=== PATIENT | female | born 1955 | race African-American/Black ===

== ENCOUNTER 2020-10-29 12:10 | Inpatient (IN) | payer OTHER ==
[2020-10-29] VITALS (18 sets, daily range): BP systolic 74–146; BP diastolic 44–95
[~2020-10-29] VITALS: Ht 160 cm; Wt 66.2 kg
[2020-10-29] MEDS ORDERED: PREDNISONE 10 M10 MG PO (12:31)
[2020-10-29 13:12] LABS: ABSOLUTE NEUTROPHILS 9.7 thou/uL (1.4-8.2); BASOPHILS 0.4 % (0.0-2.0); HEMATOCRIT 46.1 % (37.0-47.0); HEMOGLOBIN 14.8 gm/dL (12.0-15.0); LYMPHOCYTES 5.8 % (24.0-44.0); MCV 81.4 fL (80.0-100.0); MONOCYTES 5.4 % (1.0-8.0); POLYS 88.4 % (36.0-66.0); RBC 5.67 mil/uL (4.20-5.00); RDW 16.8 % (10.5-14.5)
[2020-10-29 13:25] LABS: ANION GAP 20 mmol/L (7-16); BUN 61 mg/dL (7-18); CALCIUM 9.7 mg/dL (8.5-10.1); CHLORIDE 92 mmol/L (98-107); CO2 18 mmol/L (21-32); CREATININE 2.8 mg/dL (0.6-1.0); POTASSIUM 4.4 mmol/L (3.5-5.1)
[2020-10-29 13:32] LABS: ALBUMIN 3.7 g/dL (3.4-5.0); DIRECT BILIRUBIN 0.1 mg/dL (<0.1-0.2); SGOT 22 U/L (15-37); SGPT 19 U/L (14-59); SODIUM 130 mmol/L (136-145); TOTAL BILIRUBIN 0.8 mg/dL (0.2-1.0); TROPONIN-I <0.06 ng/mL (<0.06)
[2020-10-29 13:55] LABS: GLUCOSE 1240 mg/dL (74-106); PLATELET COUNT 266 thou/uL (150-400)
[2020-10-29 14:30] LABS: BE(vivo) -7.4 mmol/L (-2 to +3); HCO3 13.2 mmol/L (22.0-26.0); PCO2 18.2 mmHg (35.0-45.0); PO2 56.4 mmHg (80.0-100.0); sO2 92.2 % (92.0-98.0)
[2020-10-29 14:55] LABS: PHOSPHORUS 4.9 mg/dL (2.5-4.9)
[2020-10-29 14:58] LABS: CHOLESTEROL 335 mg/dL (<200); HDL CHOLESTEROL 63 mg/dL (>40); TC:HDL 5.3 Ratio (Not establshd); TRIGLYCERIDE 407 mg/dL (<150); VLDL 81 mg/dL (<40)
--- NOTE | 2020-10-29 16:06 | NUR ---
A #4F POWER INJECTABLE MIDLINE WAS PLACED PER HOSPITAL POLICY AFTER ATTEMPTING A 2ND PIV AND LAB WORK WAS UNSUCCESSFUL. THE RIGHT UPPER ARM BRACHIAL VEIN WAS WIDLEY PATENT. A MIDLINE WAS TRIMMED TO 10CM AND ADVANCED WITHOUT DIFFICULTY. LINE SECURED AND RELEASED FOR USE
[2020-10-29 16:50] LABS: URINE BILIRUBIN NEGATIVE (Negative); URINE BLOOD TRACE (Negative); URINE CLARITY CLEAR; URINE COLOR YELLOW; URINE GLUCOSE-RANDOM* 3+ (Negative); URINE KETONES 1+ (Negative); URINE LEUKOCYTES-REFLEX 1+ (Negative); URINE NITRITE-REFLEX NEGATIVE (Negative); URINE PROTEIN (DIPSTICK) NEGATIVE (Negative); URINE SPECIFIC GRAVITY 1.015 (1.005-1.035); URINE UROBILINOGEN 0.2 E.U./dl (0.2-1.0)
--- NOTE | 2020-10-29 16:50 | NUR ---
PT ORIENTED TO ROON AND UNIT, BED LOW AND LOCKED, SIDE RAILS UPX3, CALL LIGHT IN REACH, TELE APPLIED. PT HAS INSULING GTT AND WELL IVF. INTITIATE DKA PROTOCOL. EDUCATION GIVEN TO AT BEDSIDE.
[2020-10-29 16:51] LABS: CALCIUM 8.3 mg/dL (8.5-10.1); CREATININE 2.6 mg/dL (0.6-1.0); MAGNESIUM 2.5 mg/dL (1.8-2.4)
[2020-10-29 17:11] LABS: POTASSIUM 3.3 mmol/L (3.5-5.1)
[2020-10-29 17:12] LABS: CASTS None Seen /LPF (None Seen); MUCUS 4-6 Moderate strn/LPF (None Seen)
[2020-10-29 17:13] LABS: SQUAMOUS >10 Many /LPF (0-3)
[2020-10-29 17:15] LABS: CRYSTALS None Seen /LPF (None Seen); URINE RBC 0-2 Rare /HPF (0-2); URINE WBC-REFLEX 6-15 Few /HPF (0-5)
--- NOTE | 2020-10-29 19:31 | NUR ---
Gave Preeti Viktor (son) update on his mother's condition and status. son will call back later.
[2020-10-29 21:49] LABS: ALBUMIN 3.2 g/dL (3.4-5.0); CALCIUM 8.2 mg/dL (8.5-10.1); MAGNESIUM 2.2 mg/dL (1.8-2.4); PHOSPHORUS 0.9 mg/dL (2.6-4.7); POTASSIUM 3.7 mmol/L (3.5-5.1)
[2020-10-30] VITALS (39 sets, daily range): BP systolic 85–156; BP diastolic 44–80
--- NOTE | 2020-10-30 02:05 | NUR ---
Pt's sugar consistenly under 200 since 2100 at the beginning of the shift. Rosenda Bell JOINT CUTTER at bedside review blood glucose trend and recent labs. she wants to shut off insulin drip and hold off long acting insulin prior to shutting off drip. JOINT CUTTER wants to start low dose lispro ACHS sliding scale and sugar checks. Hourly bs checks for next two hours then continue to ACHS
[2020-10-30 02:15] LABS: ALBUMIN 2.9 g/dL (3.4-5.0); CALCIUM 8.1 mg/dL (8.5-10.1); CREATININE 1.7 mg/dL (0.6-1.0); MAGNESIUM 2.1 mg/dL (1.8-2.4); PHOSPHORUS 1.1 mg/dL (2.6-4.7); POTASSIUM 3.8 mmol/L (3.5-5.1)
[2020-10-30 06:02] LABS: CALCIUM 8.1 mg/dL (8.5-10.1); CREATININE 1.6 mg/dL (0.6-1.0)
[2020-10-30 06:06] LABS: ALBUMIN 2.7 g/dL (3.4-5.0); PHOSPHORUS 1.6 mg/dL (2.5-4.9)
--- NOTE | 2020-10-30 07:20 | EKG ---
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 : 1955 Requested By: Yasmeen Noble Order Number: [id number] MD: Pierre Valverde Measurements Intervals [place] Rate: 118 P: 70 NV: 117 QRS: -22 QRSD: 81 T: -88 QT: 407 QTc: 571 Interpretive Statements Sinus tachycardia Right atrial enlargement Abnormal R-wave progression, early transition Q lead III Prolonged QT interval No previous ECG available for comparison Electronically Signed On 10-30-2020 7:19:53 CDT by Pierre Valverde [email or web address] <ELECTRONICALLY SIGNED> By: Pierre Valverde MD, [facility] 10/30/20 0719 [id number] Pierre Valverde MD, FACC /EPI
--- NOTE | 2020-10-30 10:17 | NUR ---
chart review. cm visited at bedside, cm cont to wear face mask and shield during visit. her was at bedside for short visit. intro to cm and dcp. pt reports independent at home. no dme, 1 step to enter. no past hh or rehab.
--- NOTE | 2020-10-30 11:26 | NUR ---
Assess due to new diagnosis diabetes with BG >500-700. A1C is pending. Lipids also elevated, chol 335, trigs 407. Diet newly advanced today and will transfer out of ICU. Will follow up for Diabetes/heart healthy diet education in next 24-48 hr.
[2020-10-30 22:06] LABS: GLYCOHEMOGLOBIN (HGB A1C) 12.2 % (4.8-5.6)
[2020-10-31] VITALS (10 sets, daily range): BP systolic 85–129; BP diastolic 52–75
[2020-10-31 01:44] LABS: ALBUMIN 2.7 g/dL (3.4-5.0); CALCIUM 8.5 mg/dL (8.5-10.1); CREATININE 1.5 mg/dL (0.6-1.0); POTASSIUM 4.1 mmol/L (3.5-5.1); TOTAL BILIRUBIN 0.6 mg/dL (0.2-1.0); TOTAL PROTEIN 6.3 g/dL (6.4-8.2)
--- NOTE | 2020-10-31 01:54 | NUR ---
ORDERED STAT LABS AROUND MIDNIGHT, PT MIDLINE NOT DRAWING AFTER THIS RN TROUBLESHOOTING. DIFFICULT STICK, LAB FINALLY GOT BLOOD, CURRENTLY STILL WAITING ON LABS TO RESULT. CALL TO LETTY PER PT REQUEST FOR "SOMETHING FOR THE PAIN IN MY HANDS." LETTY STATES SHE WILL LOOK AT PT RECORD AND ORDER SOMETHING.
--- NOTE | 2020-10-31 04:46 | NUR ---
PT RESTARTED ON INSULIN GTT AND DKA PROTOCOL. MONITORING BG CLOSELY, GLUCOSE IS LESS THAN 200. PLEASANT AND COOPERATIVE. UP TO BSC TO URINATE. CALLS APPROPRIATELY. PAIN IN HANDS SECOND TO RA, BENGAY USED WITH MODERATE RELIEF.
[2020-10-31 07:20] LABS: ABSOLUTE NEUTROPHILS 7.1 thou/uL (1.4-8.2); BASOPHILS 0.4 % (0.0-2.0); EOSINOPHILS 0.3 % (0.0-3.0); HEMATOCRIT 35.4 % (37.0-47.0); LYMPHOCYTES 11.1 % (24.0-44.0); MCH 25.5 pg (26.0-34.0); MCHC 32.2 g/dL (28.0-37.0); MCV 79.3 fL (80.0-100.0); MONOCYTES 8.4 % (1.0-8.0); POLYS 79.8 % (36.0-66.0); RBC 4.47 mil/uL (4.20-5.00); RDW 16.3 % (10.5-14.5); WBC 8.9 thou/uL (4.0-11.0)
[2020-10-31 07:55] LABS: ALBUMIN 2.7 g/dL (3.4-5.0); CALCIUM 7.5 mg/dL (8.5-10.1); CREATININE 1.3 mg/dL (0.6-1.0); MAGNESIUM 1.7 mg/dL (1.8-2.4); PHOSPHORUS 1.2 mg/dL (2.6-4.7)
[2020-10-31 07:57] LABS: POTASSIUM 2.9 mmol/L (3.5-5.1)
[2020-10-31 08:31] LABS: HEMOGLOBIN 11.4 gm/dL (12.0-15.0)
[2020-10-31 08:32] LABS: PLATELET COUNT 160 thou/uL (150-400)
[2020-10-31 16:20] LABS: CALCIUM 7.8 mg/dL (8.5-10.1); CREATININE 1.3 mg/dL (0.6-1.0)
[2020-10-31 20:31] LABS: CALCIUM 6.6 mg/dL (8.5-10.1); CREATININE 0.9 mg/dL (0.6-1.0); POTASSIUM 3.1 mmol/L (3.5-5.1)
[2020-11-01] VITALS (15 sets, daily range): BP systolic 97–139; BP diastolic 55–98
[2020-11-01 05:52] LABS: HEMATOCRIT 31.3 % (37.0-47.0); MCH 26.1 pg (26.0-34.0); MCHC 32.1 g/dL (28.0-37.0); MCV 81.5 fL (80.0-100.0); RBC 3.84 mil/uL (4.20-5.00); RDW 17.1 % (10.5-14.5); WBC 9.2 thou/uL (4.0-11.0)
[2020-11-01 06:48] LABS: ALBUMIN 2.3 g/dL (3.4-5.0); CALCIUM 6.5 mg/dL (8.5-10.1); CREATININE 0.9 mg/dL (0.6-1.0); MAGNESIUM 1.3 mg/dL (1.8-2.4); PHOSPHORUS 1.1 mg/dL (2.5-4.9); POTASSIUM 3.3 mmol/L (3.5-5.1)
--- NOTE | 2020-11-01 12:43 | NUR ---
Case discussed in ICU rounds. Possible tx orders for med/surg. Still on insulin gtt and labs being montiored. Was indep prior to admission. No dc planning needs indicated at this time. Will continue to follow along should dc needs arise.
--- NOTE | 2020-11-01 15:15 | NUR ---
ASSUMED CARE AT 0700. PATIENT'S JAMES VISITED FROM [id number] IN PATIENT'S ROOM TODAY. PATIENT TRANSFERRED TO W AT 1500 WITH ALL BELONGINGS AND CHART. REPORT GIVEN TO 4W RN.
--- NOTE | 2020-11-01 16:58 | NUR ---
Pt transfered from icu to [facility] at 1520 per wc in stable condition. Reassessment completed.vss.Blood sugar at dinner was 213.Insulin will be given at dinner.Family here this evening to visit.Updates given.Pt up in chair resting.Will continue to monitor.
--- NOTE | 2020-11-02 04:28 | NUR ---
VSS-AFEBRILE. PLACED ON 2LNC OVERNIGHT DUE TO PERIOD OF SOA WITH ANXIETY AT BEDTIME. NO INSULING GIVEN AT HS DUE TO BG OF 62. RECHECK 2 HOURS LATER SHOWED A BG IN THE 30'S. LAB UNABLE TO DRAW CONFIRMATION GLUCOSE LAB DUE TO PATIENT BEING A DIFFICULT STICK. 1 AMP OF DEXTROSE GIVEN, WELL JUICE. FURTHER RECHECKS SHOWED A BG WITHIN NORMAL LIMITS. DID BECOME SLIGHTLY CONFUSED WHEN BLOOD GLUCOSE WAS LOW. OOB TO BSC WITH 1 ASSIST, LARGE, SOFT BM OVERNIGHT. CORDOVA DRAINING ADEQUATE AMOUNT OF LIGHT YELLOW URINE TO DEPENDENT DRAINAGE BAG. FALL PRECAUTIONS IN PLACE.
[2020-11-02 05:54] LABS: HEMATOCRIT 33.4 % (37.0-47.0); HEMOGLOBIN 10.8 gm/dL (12.0-15.0); MCHC 32.3 g/dL (28.0-37.0); MCV 80.5 fL (80.0-100.0); RBC 4.15 mil/uL (4.20-5.00); RDW 17.2 % (10.5-14.5); WBC 9.1 thou/uL (4.0-11.0)
[2020-11-02 05:59] LABS: CALCIUM 7.2 mg/dL (8.5-10.1); CREATININE 1.1 mg/dL (0.6-1.0); MAGNESIUM 1.5 mg/dL (1.8-2.4)
[2020-11-02 06:15] LABS: POTASSIUM 2.9 mmol/L (3.5-5.1)
[2020-11-02 07:35] VITALS: BP 118/67
[2020-11-02 15:15] VITALS: BP 127/76
--- NOTE | 2020-11-02 17:46 | NUR ---
ASSUMED CARE OF PATIENT AT SHIFT CHANGE. ASSESSMENT CHARTED. MEDICATIONS GIVEN PER OCT. VSS. PATIENT A&OX4 AND ABLE TO MAKE NEEDS KNOWN. C/O PAIN ON R HAND. HEAT PACK GIVEN TO PATIENT AND PROVIDED SOME RELIEF. PROVIDER NOTIFIED AND TYLENOL ORDERED AND GIVEN PROVIDING RELIEF. K+ AND MG ELECTROLYTE REPLACEMENT IN PLACE. R UA MIDLINE INTACT; L WRIST IV DISCONTINUED. PATIENT FSBS STABLIZING THIS SHIFT; METFORMIN GIVEN W DINNER. PATIENT RE-EDUCATED ON S/S TO WATCH FOR W HYPO/HYPERGLYCEMIA. NO OTHER EVENTS THIS SHIFT. WILL CONTINUE TO MONITOR
[2020-11-02 20:07] VITALS: BP 116/69
--- NOTE | 2020-11-03 01:16 | NUR ---
PT AOX4. PT REPORTS 8/10 ACHING PAIN IN RIGHT HAND. PT RECEIVING PRN PO APAP Q4HR WITH PRN TOPICAL MUSCLE RUB BID AVAILABLE. PT TOLERATING PO INTAKE OF FLUIDS AND CARD CONTROLLED DIET WITHOUT ISSUE. PT WITHOUT NAUSEA OR EMESIS. PT AMBULATING WITH STANDBY TO X1 ASSIST TO BEDSIDE COMMODE, RESTING IN BED OTHERWISE. FREQUENT REPOSITIONING ENCOURAGED WHILE IN BED. PT NOTED TO SHIFT INDEPENDENTLY WHILE IN BED. SENSATION INTACT, CAPILLARY REFILL LESS THAN 3SEC IN ALL EXTREMITIES. PT ENCOURAGED TO NOTIFY STAFF FOR ALL NEEDS, CALL LIGHT WITHIN REACH, BED ALARM ON, BED LOCKED IN LOWEST POSITION, FREQUENT MONITORING WILL CONTINUE.
[2020-11-03 05:33] LABS: HEMOGLOBIN 9.8 gm/dL (12.0-15.0); MCH 25.7 pg (26.0-34.0); MCHC 32.5 g/dL (28.0-37.0); MCV 79.2 fL (80.0-100.0); RBC 3.79 mil/uL (4.20-5.00); RDW 17.2 % (10.5-14.5); WBC 11.4 thou/uL (4.0-11.0)
[2020-11-03 05:47] LABS: CREATININE 0.8 mg/dL (0.6-1.0); POTASSIUM 3.3 mmol/L (3.5-5.1)
[2020-11-03 11:00] VITALS: BP 143/72
--- NOTE | 2020-11-03 14:34 | NUR ---
CARE TEAM INDICATED THAT PT MIGHT BE MEDICALLY STABLE TO DC OVER THE WEEKEND AND THEY ARE RECOMMENDING HH SERVICES UPON DC. CM MET WITH PT AND SPOUSE AT BEDSIDE THIS DAY. THEY ARE AGREEABLE WITH HH SERVICES AND DIDN'T INDICATE A PREFERANCE OF PROVIDERS. REFERRAL TO BE SENT FOR HH SERVICES.
--- NOTE | 2020-11-03 15:51 | NUR ---
ASSUMED CARE OF PATIENT AT SHIFT CHANGE. ASSESSMENT CHARTED. MEDICATIONS ADMINISTERED PER EMAR. VSS. PATIENT IS A&OX4 AND MAKES NEEDS KNOWN. PATIENT IS UP X1 TO THE BEDSIDE COMMODE. TASHA WAS D/C'D AND PAT[facility] SUCCESSFULL[facility] AFTER VOICING NO PAIN OR DISCOMFORT. PATIENT MIGHT DISCHARGE THIS WEEKEND WITH HOMEHEALTH. VOICING PAIN ON R HAND RELIEVED BY PRN PAIN MED AND HEAT/COLD THERAPY. DENIES OTHER NEEDS AT THIS TIME. WILL CONTINUE TO MONITOR AND FOLLOW PLAN OF CARE
[2020-11-03 15:58] VITALS: BP 143/72
[2020-11-03 20:21] VITALS: BP 123/88
--- NOTE | 2020-11-04 05:48 | NUR ---
Pt. rested quietly during the night when checked on during frequent rounds. She offers no c/o pain or discomfort. Up to the bedside comode with stand by assistance. Bed alarm is on.
[2020-11-04 08:02] VITALS: BP 115/75
[2020-11-04 11:28] VITALS: BP 115/75
[2020-11-04 11:30] LABS: HEMATOCRIT 32.2 % (37.0-47.0); HEMOGLOBIN 10.3 gm/dL (12.0-15.0); MCH 25.2 pg (26.0-34.0); MCV 78.8 fL (80.0-100.0); RBC 4.09 mil/uL (4.20-5.00); RDW 16.9 % (10.5-14.5); WBC 14.3 thou/uL (4.0-11.0)
[2020-11-04 11:38] LABS: CALCIUM 7.2 mg/dL (8.5-10.1); POTASSIUM 3.3 mmol/L (3.5-5.1)
[2020-11-04 16:04] VITALS: BP 120/66
--- NOTE | 2020-11-04 16:50 | NUR ---
Assumed pt care this am vs stable. blood sugar at noon was low, lispro held, mitigated with juice and meals. +3 Edema noted on the right upper ext., midline removed, ultrsound confirmed DVT. MD aware, medications given, continued monitoring done for this shift. POC followed, pain is managed with mediction. REfused another IV line at the moment, ND informed.
[2020-11-04 19:42] VITALS: BP 125/67
--- NOTE | 2020-11-04 20:49 | NUR ---
Pt. blood sugar was 50 and she is asymptomatic. Apple juice was given and upon recheck it was 49. Glucose tabs given. Bed alarm is on.
--- NOTE | 2020-11-04 22:21 | NUR ---
Blood sugar is now up to 95 and she offers no complaints.
--- NOTE | 2020-11-05 07:22 | NUR ---
Pt. rested quietly at intervals during the night when checked on during frequent rounds. She continues to have right arm swelling and she does some pain, but refused any pain med intervention. She has been keeping her arm elevated. Bed alarm is on.
[2020-11-05 08:25] VITALS: BP 116/66
[2020-11-05 10:59] LABS: HEMATOCRIT 29.2 % (37.0-47.0); HEMOGLOBIN 9.5 gm/dL (12.0-15.0); MCH 26.1 pg (26.0-34.0); MCHC 32.6 g/dL (28.0-37.0); MCV 80.1 fL (80.0-100.0); RBC 3.64 mil/uL (4.20-5.00); RDW 17.6 % (10.5-14.5); WBC 13.3 thou/uL (4.0-11.0)
[2020-11-05 16:00] VITALS: BP 111/66; BP 145/83
--- NOTE | 2020-11-05 18:36 | NUR ---
Assumed pt care at 7am.Pt in and out of bed with sba.Assessment completed.vss. Pt tolerated diet and meds.Dr Hannah here,order noted.Pt here to visit and wanted children come when he leaves today but he was told that since only one visitor allowed per pt throughout the hospital stay per covid 19 protocol, children will not be coming.Pt was disappointed.Blood sugar this evening was 152.No onsulin given. Pt has good appetite at all meals.Pt in bed resting at present. Will continue to monitor.
[2020-11-05 20:22] VITALS: BP 101/60
--- NOTE | 2020-11-06 02:39 | NUR ---
PT CARE ASSUMED WITH PT IN BED WATCHING TV AT 1900.PT IS A/O X4.PT IS UP WITH STANDBY ASSIST TO BSC.PT HAD A BM DURING SHIFT.PT C/O HEADACHE AND ADMINISTERED TYLENOL PRN.PT IS ACCUCHECK ACHS WITH MODERATE SSI.PT DENIED NAUSEA AND VOMITING.WILL CONTINUE TO MONITOR POC
[2020-11-06 05:41] LABS: HEMATOCRIT 24.7 % (37.0-47.0); HEMOGLOBIN 8.2 gm/dL (12.0-15.0); MCH 26.1 pg (26.0-34.0); MCHC 33.2 g/dL (28.0-37.0); MCV 78.5 fL (80.0-100.0); RBC 3.15 mil/uL (4.20-5.00); RDW 16.7 % (10.5-14.5); WBC 10.6 thou/uL (4.0-11.0)
[2020-11-06 06:48] LABS: CALCIUM 7.4 mg/dL (8.5-10.1); CREATININE 0.9 mg/dL (0.6-1.0); POTASSIUM 3.5 mmol/L (3.5-5.1)
[2020-11-06 08:18] VITALS: BP 111/69
[2020-11-06 09:41] LABS: % SATURATION 12 % (20-39); IRON 16 ug/dL (50-170); TIBC 132 ug/dL (250-450)
[2020-11-06 10:12] LABS: FOLIC ACID 4.6 ng/mL (8.6-58.9)
--- NOTE | 2020-11-06 13:30 | NUR ---
CARE TEAM INDICATED THAT PT'S HGB DROPPED. CARE TEAM CONTINUE TO MONITOR. IT IS ANTIPATED THAT PT WILL DC HOME WITH SPOUSE AND [facility] ONCE MEDICALLY STABLE. CM TO FOLLOW INDICATED WITH DC PLANNING.
--- NOTE | 2020-11-06 15:37 | NUR ---
This RN agrees with the assessment of the CAPABILITY LEAD.
[2020-11-06 16:18] VITALS: BP 134/67
--- NOTE | 2020-11-06 18:52 | NUR ---
ASSUMED CARE OF PATIENT AT SHIFT CHNAGE. ASSESSMENT CHARTED. MEDICATIONS ADMINISTERED PER EMAR. VSS. PATIENT IS A&OX4 AND MAKES NEEDS KNOWN. PATIENT IS UP SBA TO BSC AND STEADY. C/O PAIN ON R HAND BUT REFUSES PAIN MEDICINE. HGB DROPPED AND OCCULT BLOOD SAMPLE SENT TO LAB FOR REVIEW. FSBS STABLE FOR PATIENT; PATIENT ON MODERATE SLIDING SCALE HOWEVER PATIENT VOICES BEING NERVOUS SINCE BS HAS DROPPED DRAMATICALLY IN THE PAST. PATIENT VOICES NO FURTHER NEEDS. FALL PRECAUTIONS REMAIN IN PLACE. WILL ENDORSE TO NOC RN
[2020-11-06 20:23] VITALS: BP 118/64
[2020-11-06 20:50] VITALS: BP 118/64
--- NOTE | 2020-11-07 03:40 | NUR ---
Assumed pt care at 1900. A/OX4,VSS. Denies pain on assessment. Up with SBA to BSC.Continent of B&B. Pt hesitant about taking insulin at HS,educated on importance of following regimen inorder to get blood sugars WNL;pt educated on taking a snack at bedtime even at home and verbalized understanding.Blood sugar rechecked at 0230 and 179. Pt denies any other needs at this time,will continue to monitor pt.
[2020-11-07 04:43] LABS: HEMATOCRIT 22.6 % (37.0-47.0); HEMOGLOBIN 7.3 gm/dL (12.0-15.0); MCH 25.7 pg (26.0-34.0); MCHC 32.4 g/dL (28.0-37.0); MCV 79.4 fL (80.0-100.0); RBC 2.85 mil/uL (4.20-5.00); WBC 12.3 thou/uL (4.0-11.0)
[2020-11-07 04:51] LABS: CALCIUM 7.6 mg/dL (8.5-10.1); CREATININE 0.9 mg/dL (0.6-1.0); POTASSIUM 3.8 mmol/L (3.5-5.1)
[2020-11-07 08:28] VITALS: BP 129/66
--- NOTE | 2020-11-07 10:49 | NUR ---
Nutrition followup: pt eating fairly well, 50-75% of meals. Able to order as desired. BG much [id number]. Having some low BG episodes but overall improving. Meds: metformin, SSI, prednisone. Prior DM diet education done 11/01 for new dx DM. pt voiced no further questions. Noted folate 4.6 low-REC Order folate supplement. Continue as low nutrition risk.
--- NOTE | 2020-11-07 10:52 | NUR ---
Nutrition: Folate deficiency noted-REC order folate supplementation.
[2020-11-07 11:00] VITALS: BP 118/62
--- NOTE | 2020-11-07 12:14 | NUR ---
PT'S HGB DROPPED AGAIN GI WAS CONSULTED. IT TO SEE ABOUT POSSIBLE PLACEMENT OF A FILTER DELATED TO DVT. CM FOLLOWING REGARDING DC PLANNING.
[2020-11-07 15:05] LABS: HEMATOCRIT 26.5 % (37.0-47.0); HEMOGLOBIN 8.4 gm/dL (12.0-15.0); MCH 25.6 pg (26.0-34.0); MCHC 31.7 g/dL (28.0-37.0); MCV 80.7 fL (80.0-100.0); RBC 3.28 mil/uL (4.20-5.00); WBC 14.1 thou/uL (4.0-11.0)
[2020-11-07 15:18] LABS: INR 1.2; PROTIME 12.5 Seconds (9.3-11.4)
[2020-11-07 16:29] VITALS: BP 118/62
--- NOTE | 2020-11-07 18:07 | NUR ---
ASSUMED CARE OF PATIENT AT SHIFT CHANGE. ASSESSMENT CHARTED; NUC. MED SPOKE WITH THIS NURSE REGARDING POSSIBLE PROCEDURE. INSULIN AND ORAL ANTIDIABETIC HELD DUE TO PATIENT HX OF UNSTABLE FSBS AND POSSIBLE NPO STATUS. PATIENT REMAINS UP SBA TO THE BSC. R EXTREMITY RED AND LIMP; PATIENT C/O PAIN AT 5/10 RELIEVED BY PRN. TYLENOL. SITE OF DVT ON R UA REMAINS SWOLLEN, RED AND PAINFUL TO TOUCH. APTT & INR LABS DRAWN FOR HEPARIN DRIP TO START TONIGHT @2100. NEW IV CATHETER IN PLACE. VOICING NO NEW NEEDS. WILL ENDORSE TO SONJA LOVE
[2020-11-07 20:15] VITALS: BP 108/67
[2020-11-08 01:45] LABS: HEMATOCRIT 23.5 % (37.0-47.0); HEMOGLOBIN 7.7 gm/dL (12.0-15.0); MCH 25.7 pg (26.0-34.0); MCHC 32.6 g/dL (28.0-37.0); MCV 78.9 fL (80.0-100.0); RBC 2.98 mil/uL (4.20-5.00); RDW 17.3 % (10.5-14.5); WBC 14.9 thou/uL (4.0-11.0)
[2020-11-08 02:00] LABS: CALCIUM 7.6 mg/dL (8.5-10.1); POTASSIUM 3.7 mmol/L (3.5-5.1)
[2020-11-08 04:18] VITALS: BP 131/70
[2020-11-08 07:21] LABS: ALBUMIN 2.2 g/dL (3.4-5.0); DIRECT BILIRUBIN < 0.1 mg/dL (<0.1-0.2); SGOT 42 U/L (15-37); SGPT 42 U/L (14-59); TOTAL BILIRUBIN 0.2 mg/dL (0.2-1.0); TOTAL PROTEIN 5.6 g/dL (6.4-8.2)
[2020-11-08 08:07] VITALS: BP 114/72
--- NOTE | 2020-11-08 10:02 | NUR ---
CARE TEAM INDICATED THAT PT IS TO HAVE A THROMBECTOMY AND A DOPPLER THIS DAY. IT IS ANTICIPATED THAT PT WILL TRANSFER TO CCU POST PROCEDURE. PT TO HAVE EGD/COLONOSCOPY TOMORROW. PT IS BEING FOLLOWED BY [facility] FOR SERVICES ONCE MEDICALLY STABLE. CM TO FOLLOW INDICATED WITH DC PLANNING.
--- NOTE | 2020-11-08 13:22 | NUR ---
Assumed pt care at 7am. Pt in bed resting and waiting to be cotton picker for procedure today.Assessment completed.vss.Rt arm swollen and warm to touch. Heparing gtt in progress and rate adjusted per ptt protocol at 1125.Next aptt will be at 1700.Pt left per bed for procedure in IR at 1310 accompanied by her .Will continue to monitor.
[2020-11-08 19:55] VITALS: BP 142/77
--- NOTE | 2020-11-09 03:59 | NUR ---
PT IS A/O X4 AND IS UP SBA TO THE BSC. ROOM AIR. SOA WITH EXERTION. VOIDS PER BSC. BOWEL PREP FINISHED AND PT HAS HAD MULTIPLE LOOSE STOOLS DARK BROWN IN COLOR. CURRENTLY NPO AWAITING HER PROCEDURE. PRESSURE DRESSING TO JORDAN IS C/D/I WITH NO DRAINAGE. EDEMA NOTED IN THIS ARM. HS BS 148. PT REFUSED SLIDING SCALE INSULIN. CRITICAL APTT OF >139. CEMENT OR CONCRETE FINISHING SUPERVISOR NOTIFIED. HEPARIN PROTOCOL FOLLOWED AND CHARTED. NEXT REDRAW IS AT 0640. FALL PRECAUTIONS IN PLACE, CALL LIGHT IS WITHIN REACH. WILL CONTINUE TO MONITOR.
[2020-11-09 07:06] LABS: HEMATOCRIT 24.6 % (37.0-47.0); HEMOGLOBIN 7.9 gm/dL (12.0-15.0); MCH 25.7 pg (26.0-34.0); MCHC 32.1 g/dL (28.0-37.0); MCV 79.9 fL (80.0-100.0); RBC 3.07 mil/uL (4.20-5.00); RDW 17.6 % (10.5-14.5); WBC 13.4 thou/uL (4.0-11.0)
[2020-11-09 07:07] LABS: CALCIUM 8.1 mg/dL (8.5-10.1); CREATININE 0.9 mg/dL (0.6-1.0); POTASSIUM 4.1 mmol/L (3.5-5.1)
[2020-11-09 07:42] VITALS: BP 139/79
[2020-11-09 08:05] VITALS: BP 139/79
--- NOTE | 2020-11-09 12:06 | NUR ---
PT ROUND UPDATE: PT SCHED FOR EGD AND COLONOSCOPY TODAY. ANIL[facility] DAO ACCEPTING.
[2020-11-09 16:40] VITALS: BP 144/61
--- NOTE | 2020-11-09 17:49 | NUR ---
PT CARE ASSUMED AT 0700. ASSESSMENTS CHARTED. MEDICATIONS CHARTED. LH IV. ROOM AIR. BSC. ACHS, MODERATE SS. EGD/COLONOSCOPY PERFORMED; 2 AVM'S TREATED WITH BICAP AND A HIATAL HERNIA. HEPARIN GTT D/C'D. ACHS.
[2020-11-09 19:51] VITALS: BP 116/52
--- NOTE | 2020-11-10 02:42 | NUR ---
PT CARE ASSUMED WITH PT IN BED WATCHING TV.PT IS A/O X4.PT IS UP WITH STANDBY ASSIST TO BSC.PT HAS BLOOD SUGAR OF 42 AND GLUCOSE TABLET GIVEN WITH APPLE JUICE.PT IS ACCUCHECK ACHS.IV ACCESS ON LH WITH NS AT 100.PT APPEAR TO BE IN NO ACUTE DISTRESS.WILL CONTINUE TO MONITOR
[2020-11-10 08:22] VITALS: BP 143/66
[2020-11-10 12:13] VITALS: BP 126/56
[2020-11-10 12:31] VITALS: BP 143/72
[2020-11-10] MEDS ORDERED: FOLIC ACID1 MG PO (14:17)
[2020-11-10] MEDS ORDERED: IRON325 PO (14:17)
[2020-11-10] MEDS ORDERED: GLUCOPHAGE500 MG PO (14:17)
[2020-11-10] MEDS ORDERED: ELIQUIS5 MG PO (14:17)
[2020-11-10] MEDS ORDERED: SYNTHROID112 MC1 PO (14:17)
[2020-11-10] MEDS ORDERED: FREESTYLE LANC1 EACH MISCELL (14:26)
[2020-11-10] MEDS ORDERED: FREESTYLE TEST1 EACH SUBQ (14:26)
[2020-11-10] MEDS ORDERED: FREESTYLE SYST1 EACH SUBQ (14:26)
[2020-11-10 14:59] VITALS: BP 143/72
--- NOTE | 2020-11-10 16:37 | NUR ---
PT DISCHARGING TODAY TO HOME WITH RESUMPTION OF CARE WITH ANILA DAO FAXED DC ORDERS/SUMMAARY SPOKE WITH BRICE IN INTAKE SHE RECEIVED ORDERS AND WILL ARRANGE VISITS WITH PT.
[2020-11-10 17:10] VITALS: BP 143/72
--- NOTE | 2020-11-10 17:19 | NUR ---
PT A&OX4, VSS, DENIES PAIN. PATIENT SBA BEDSIDE COMMODE. AT BEDSIDE. PATIENT DISCHARGED HOME WITH HOME HEALTH. IV REMOVED, ALL BELONGINGS WITH PATIENT. PATIENT AWARE TO SCHEDULE FOLLOW UP APPOINTMENTS WITH PCP AND CARDIOLOGY. NO SIGNS OF DISTRESS AT DISCHARGE. PATIENT BLOOD SUGAR STABLE AT BREAKFAST AND LUNCH.
== END 2020-11-10 17:15 | disposition home health service (06) | DRG 270 ==
LOC: ER 12:10 → ICU 15:36 → EROBS 15:36 → ICU 16:11 → 4W 11-01 15:17
PROVIDERS: Emergency Medicine; Internal Medicine; Internal Medicine Gastroenterology; Nurse Practitioner Family; ADMIT Hospitalist; ATTEND Hospitalist
DX: T82.868A Thrombosis due to vascular prosthetic devices, implants and grafts, initial encounter (principal); E11.10 Type 2 diabetes mellitus with ketoacidosis without coma; K55.21 Angiodysplasia of colon with hemorrhage; N17.0 Acute kidney failure with tubular necrosis; E87.2 Acidosis; E87.1 Hypo-osmolality and hyponatremia; D62 Acute posthemorrhagic anemia; I82.621 Acute embolism and thrombosis of deep veins of right upper extremity; I82.A11 Acute embolism and thrombosis of right axillary vein; I82.B11 Acute embolism and thrombosis of right subclavian vein; I73.9 Peripheral vascular disease, unspecified; K44.9 Diaphragmatic hernia without obstruction or gangrene; Z20.822 Contact with and (suspected) exposure to COVID-19; M06.9 Rheumatoid arthritis, unspecified; E86.0 Dehydration; Z88.6 Allergy status to analgesic agent; Z89.421 Acquired absence of other right toe(s); Z79.899 Other long term (current) drug therapy; Y83.8 Other surgical procedures as the cause of abnormal reaction of the patient, or of later complication, without mention of misadventure at the time of the procedure; Y92.89 Other specified places as the place of occurrence of the external cause
CPT/HCPCS: 10047; 10078; 10204; 27000; 62110; 62900

== ENCOUNTER 2021-10-12 14:38 | Inpatient (IN) | payer OTHER ==
[~2021-10-12] VITALS: Ht 160 cm; Wt 62.4 kg
[~2021-10-12 14:38] MED LIST: ELIQUIS5 MG PO; FOLIC ACID1 MG PO; FREESTYLE LANC1 EACH MISCELL; FREESTYLE SYST1 EACH SUBQ; FREESTYLE TEST1 EACH SUBQ; GLUCOPHAGE500 MG PO; IRON325 PO; PREDNISONE 10 M10 MG PO; SYNTHROID112 MC1 PO
[2021-10-12 14:58] VITALS: BP 140/72
[2021-10-12] MEDS ORDERED: HYDROCODON-ACE1 EAC7 PO (15:04)
[2021-10-12 16:29] LABS: EOSINOPHILS 0.2 % (0.0-3.0)
[2021-10-12 16:31] LABS: ABSOLUTE NEUTROPHILS 8.5 thou/uL (1.4-8.2); BASOPHILS 0.6 % (0.0-2.0); HEMATOCRIT 37.9 % (37.0-47.0); LYMPHOCYTES 10.6 % (24.0-44.0); MCH 24.8 pg (26.0-34.0); MCHC 31.6 g/dL (28.0-37.0); MCV 78.7 fL (80.0-100.0); MONOCYTES 5.3 % (1.0-8.0); POLYS 83.3 % (36.0-66.0); RBC 4.82 mil/uL (4.20-5.00); RDW 17.9 % (10.5-14.5); WBC 14.2 thou/uL (4.0-11.0)
[2021-10-12 16:33] LABS: PLATELET COUNT 399 thou/uL (150-400)
[2021-10-12 16:37] LABS: CALCIUM 9.2 mg/dL (8.5-10.1); CREATININE 1.1 mg/dL (0.6-1.0); POTASSIUM 3.4 mmol/L (3.5-5.1)
[2021-10-12 16:47] LABS: ALBUMIN 3.3 g/dL (3.4-5.0); TOTAL BILIRUBIN 0.4 mg/dL (0.2-1.0); TOTAL PROTEIN 6.2 g/dL (6.4-8.2)
[2021-10-12 17:01] LABS: URINE BILIRUBIN NEGATIVE (Negative); URINE BLOOD NEGATIVE (Negative); URINE CLARITY CLEAR; URINE COLOR YELLOW; URINE GLUCOSE-RANDOM* NEGATIVE (Negative); URINE KETONES NEGATIVE (Negative); URINE LEUKOCYTES-REFLEX NEGATIVE (Negative); URINE NITRITE-REFLEX NEGATIVE (Negative); URINE PROTEIN (DIPSTICK) NEGATIVE (Negative); URINE SPECIFIC GRAVITY 1.015 (1.005-1.035); URINE UROBILINOGEN 0.2 E.U./dl (0.2-1.0)
[2021-10-12 18:16] LABS: APTT 25.1 Seconds (24.5-32.8); PROTIME 10.9 Seconds (10.5-12.1)
[2021-10-12 20:21] VITALS: BP 127/73
[2021-10-12 21:30] VITALS: BP 131/75
[2021-10-12] MEDS ORDERED: LIPITOR 20 MG T20 M1 PO (23:02)
[2021-10-12] MEDS ORDERED: METFORMIN HCL500 M3 PO (23:04)
[2021-10-12] MEDS ORDERED: PLAVIX 75 MG TA75 MG PO (23:04)
[2021-10-12] MEDS ORDERED: NEURONTIN300 MG PO (23:05)
[2021-10-12] MEDS ORDERED: ULTRAM 50MG TAB50 MG PO (23:10)
[2021-10-12] MEDS ORDERED: TRIAMTERENE/HCT1 CA1 PO (23:11)
[2021-10-13 03:07] LABS: HEMATOCRIT 36.9 % (37.0-47.0); HEMOGLOBIN 11.7 gm/dL (12.0-15.0); MCH 24.6 pg (26.0-34.0); MCHC 31.6 g/dL (28.0-37.0); MCV 77.9 fL (80.0-100.0); RBC 4.74 mil/uL (4.20-5.00)
[2021-10-13 03:14] VITALS: BP 127/60
[2021-10-13 03:16] LABS: CHOLESTEROL 162 mg/dL (<200); HDL CHOLESTEROL 85 mg/dL (>40); LDL CHOLESTEROL 60 mg/dL (<100); TC:HDL 1.9 Ratio (Not establshd); TRIGLYCERIDE 89 mg/dL (<150); VLDL 18 mg/dL (<40)
[2021-10-13 03:17] LABS: CALCIUM 9.2 mg/dL (8.5-10.1); CREATININE 0.9 mg/dL (0.6-1.0); POTASSIUM 3.4 mmol/L (3.5-5.1)
[2021-10-13 03:29] LABS: SERUM ASSESSMENT Clear
[2021-10-13 07:30] VITALS: BP 130/91
--- NOTE | 2021-10-13 09:51 | EKG ---
[address] [place] [address] ELECTROCARDIOGRAM REPORT Name: MANDA PIERSON Room #: 204-P ADM IN M.R.#: [id number] Admission: 10/12/21 Attend Phys: Ruiz Rodriguez MD Discharge: Date of : 51 Report #: [id number] [facility] ED Test Date: 2021-10-12 Test Time: 16:32:24 Pat Name: MANDA PIERSON Department: Room: 204 Gender: F Supervisor Hanging And Trimming: ELIAZAR : 1955 Requested By: Nick Joyce Order Number: [id number] MD: Hollis Shah Measurements Intervals [place] Rate: 76 P: 56 DC: 122 QRS: -11 QRSD: 103 T: 21 QT: 410 QTc: 462 Interpretive Statements Sinus rhythm Abnormal R-wave progression, early transition Borderline T abnormalities, anterior leads Compared to ECG 10/29/2020 12:57:51 T-wave abnormality now present Sinus tachycardia no longer present Atrial abnormality no longer present Prolonged QT interval no longer present Electronically Signed On 10-13-2021 9:51:03 NUTRITION SERVICES AIDE by Hollis Shah [email or web address] <ELECTRONICALLY SIGNED> By: Hollis Shah MD 10/13/21 0951 [id number] Hollis Shah MD /EPI
[2021-10-13 11:30] VITALS: BP 139/79
[2021-10-13 16:00] VITALS: BP 121/79
[2021-10-13 19:40] VITALS: BP 118/65
[2021-10-14 03:42] VITALS: BP 126/72
[2021-10-14 05:36] LABS: GLYCOHEMOGLOBIN (HGB A1C) 7.2 % (4.8-5.6)
[2021-10-14 07:45] VITALS: BP 125/70
[2021-10-14 11:35] VITALS: BP 125/70
[2021-10-14 15:40] VITALS: BP 133/68
[2021-10-14 20:03] VITALS: BP 128/69
[2021-10-15] VITALS (7 sets, daily range): BP systolic 112–147; BP diastolic 66–92
[2021-10-15 04:42] LABS: HEMATOCRIT 36.9 % (37.0-47.0); HEMOGLOBIN 11.8 gm/dL (12.0-15.0); MCH 24.7 pg (26.0-34.0); MCV 77.1 fL (80.0-100.0); RBC 4.79 mil/uL (4.20-5.00); RDW 17.1 % (10.5-14.5); WBC 13.2 thou/uL (4.0-11.0)
[2021-10-15 04:54] LABS: CALCIUM 8.7 mg/dL (8.5-10.1); CREATININE 1.1 mg/dL (0.6-1.0)
[2021-10-15 05:07] LABS: POTASSIUM 2.9 mmol/L (3.5-5.1)
[2021-10-15] MEDS ORDERED: ELIQUIS5 MG PO (16:01)
== END 2021-10-15 18:37 | disposition home or self-care (01) | DRG 40 ==
LOC: ER 14:38 → EROBS 18:20 → 2N 18:20
PROVIDERS: Nurse Practitioner Adult Health; Psychiatry & Neurology Neuromuscular Medicine; Student in an Organized Health Care Education/Training Program; ADMIT Hospitalist; ATTEND Hospitalist
PROC: 0JH602Z Insertion of Monitoring Device into Chest Subcutaneous Tissue and Fascia, Open Approach (ICD-10-PCS; principal; 2021-10-15)
DX: I63.9 Cerebral infarction, unspecified (principal); R65.11 Systemic inflammatory response syndrome (SIRS) of non-infectious origin with acute organ dysfunction; M06.9 Rheumatoid arthritis, unspecified; R47.01 Aphasia; I10 Essential (primary) hypertension; E11.51 Type 2 diabetes mellitus with diabetic peripheral angiopathy without gangrene; D72.829 Elevated white blood cell count, unspecified; E03.9 Hypothyroidism, unspecified; E87.6 Hypokalemia; Z20.822 Contact with and (suspected) exposure to COVID-19; Z89.421 Acquired absence of other right toe(s); Z79.899 Other long term (current) drug therapy; Z86.718 Personal history of other venous thrombosis and embolism; Z88.6 Allergy status to analgesic agent; Z87.891 Personal history of nicotine dependence
CPT/HCPCS: 10081